=== PATIENT | male | born 1955 | race Caucasian/White ===

== ENCOUNTER → 2017-12-24 | Outpatient (CLI) | payer OTHER ==
[~2017-12-24] MED LIST: ASPIR 8181 M1 PO; ASPIRIN EC325 MG PO; CELECOXIB200 MG PO; CIPRO500 MG PO; CRESTOR20 MG PO; DILAUDID2 MG PO; ENDOCET 5-3251 EACH PO; HYDROCODON-ACE1 EAC9 PO; HYDROMORPHONE HC2 MG PO; IRON325 M1 PO; LISINOPRIL10 MG PO; TRAMADOL HCL50 MG PO; ZOFRAN4 MG PO
== END | disposition home or self-care (01) ==
LOC: CDC 09:55
DX: Z01.810 Encounter for preprocedural cardiovascular examination (principal); M43.16 Spondylolisthesis, lumbar region; R94.31 Abnormal electrocardiogram [ECG] [EKG]
CPT/HCPCS: 93000

== ENCOUNTER 2018-01-29 21:50 | Inpatient (IN) | payer OTHER ==
[~2018-01-29] VITALS: Ht 185.4 cm; Wt 121.5 kg
[~2018-01-29 21:50] MED LIST changes: +CENTRUM ADULTS1 EACH PO; +IBU800 MG PO; +NEURONTIN300 MG PO; +ST. JOSEPH ASPI81 MG PO
[2018-01-30 09:31] VITALS: BP 150/93
[2018-01-30 19:30] VITALS: BP 150/90
[2018-01-30 23:10] VITALS: BP 114/66
[2018-01-31] VITALS (7 sets, daily range): BP systolic 93–156; BP diastolic 52–79
[2018-02-01 08:10] VITALS: BP 138/84
[2018-02-01] MEDS ORDERED: HYDROCODON-ACE1 EAC7 PO (15:05)
[2018-02-01] MEDS ORDERED: TIZANIDINE HCL4 MG PO (15:05)
[2018-02-01] MEDS ORDERED: HYDROMORPHONE HC2 MG PO (15:16)
== END 2018-02-01 16:31 | disposition home or self-care (01) | DRG 460 ==
LOC: ENRESERV 21:50 → 2SOUTH 01-30 08:49 → 3EAST 01-30 08:49 → 2SOUTH 01-30 13:00 → ENRESERV 01-30 17:31 → 3EAST 01-30 19:19
PROC: 0SG30AJ Fusion of Lumbosacral Joint with Interbody Fusion Device, Posterior Approach, Anterior Column, Open Approach (ICD-10-PCS; principal; 2018-01-30)
PROC: 0SG00AJ Fusion of Lumbar Vertebral Joint with Interbody Fusion Device, Posterior Approach, Anterior Column, Open Approach (ICD-10-PCS; principal; 2018-01-30)
PROC: 0SG007J Fusion of Lumbar Vertebral Joint with Autologous Tissue Substitute, Posterior Approach, Anterior Column, Open Approach (ICD-10-PCS; principal; 2018-01-30)
DX: M43.16 Spondylolisthesis, lumbar region (principal); M47.26 Other spondylosis with radiculopathy, lumbar region; M48.062 Spinal stenosis, lumbar region with neurogenic claudication; M51.16 Intervertebral disc disorders with radiculopathy, lumbar region; I10 Essential (primary) hypertension; E78.00 Pure hypercholesterolemia, unspecified; R73.03 Prediabetes; Z96.651 Presence of right artificial knee joint; Z79.82 Long term (current) use of aspirin
CPT/HCPCS: 72100; 76000; 86850; 86900; 86901; 97530 GP; C1713; C1768; J0131; J0330; J0690; J1100; J1170; J1580; J2250; J2405; J2930; J3010; J3370; J3480; J7050; S0020